=== PATIENT | female | born 1985 | race Caucasian/White ===

== ENCOUNTER 2018-06-20 17:44 | Inpatient (IN) | payer OTHER ==
[2018-06-20] MEDS ORDERED: Sodium Chloride 0.9% 10 ML Syringe FLUSH PRN (17:52)
[2018-06-20] MEDS ORDERED: Tranexamic Acid 1,000 MG in Sodium Chloride 0.9% 100 ML IV PRN (17:52)
[2018-06-20] MEDS ORDERED: Terbutaline 1 MG/ML SDV SUBCUT PRN (17:52)
[2018-06-20] MEDS ORDERED: Carboprost Tromethamine 250 MCG/1 ML Amp IM PRN (17:52)
[2018-06-20] MEDS ORDERED: Sodium Chloride 0.9% 2.5 ML Syringe FLUSH PRN (17:52)
[2018-06-20] MEDS ORDERED: Sodium Chloride 0.9% 10 ML SDV IV PRN (17:52)
[2018-06-20] MEDS ORDERED: Water For Irrigation,Sterile 1,000 ML Container IRR PRN (17:52)
[2018-06-20] MEDS ORDERED: Misoprostol 200 MCG Tab PO PRN (17:52)
[2018-06-20] MEDS ORDERED: Methylergonovine 0.2 MG/1 ML Amp IM PRN (17:52)
[2018-06-20] MEDS ORDERED: Lidocaine 1% 50 ML MDV INJECT PRN (17:52)
[2018-06-20] MEDS ORDERED: Ondansetron 4 MG/2 ML SDV IV PRN (17:52)
[2018-06-20] MEDS ORDERED: Oxytocin/0.9 % Sodium Chloride 30 UNIT/500 ML BAG IV SCH ×2 (18:00)
[2018-06-20] MEDS: Misoprostol 25 MCG (1/4 of 100 MCG) Tab VAG PRN ×2 (18:37→22:58)
[2018-06-21] MEDS: Butorphanol 1 MG/ML SDV IVPUSH PRN ×3 (03:13→06:15)
[2018-06-21] MEDS: Lactated Ringers 1,000 ML IV SCH ×2 (06:15→07:33)
--- NOTE | 2018-06-21 06:45 | PCM.PREANE ---
Preanesthetic Assessment - Anesthesia/Transfusion/Family Hx Anesthesia History: Prior Anesthesia Without Reaction Family History of Anesthesia Reaction: No Transfusion History: No Prior Transfusion(s) - Review of Systems General: No Symptoms Pulmonary: No Symptoms Cardiovascular: No Symptoms Gastrointestinal: No Symptoms Neurological: No Symptoms Other: Reports: None - Physical Assessment Height: 5 ft 8 in Weight: 142.609 kg ASA Class: 2 Mental Status: Alert & Oriented x3 Airway Class: Mallampati = 2 Dentition: Reports: Normal Dentition Thyro-Mental Finger Breadths: 3 Mouth Opening Finger Breadths: 3 ROM/Head Extension: Full Lungs: Clear to Auscultation, Normal Respiratory Effort Cardiovascular: Regular Rate, Regular Rhythm - Lab Values: Laboratory Last Values WBC 8.82 K/uL (4.0-11.0) 06/20/18 18: RBC 4.03 M/uL (4.30-5.90) L 06/20/18 18:29 Hgb 11.8 g/dL (12.0-16.0) L 06/20/18 18: Hct 35.6 % (36.0-46.0) L 06/20/18 18:29 MCV 88.3 fL (80.0-98.0) 06/20/18 18: MCH 29.3 pg (27.0-32.0) 06/20/18 18: MCHC 33.1 g/dL (31.0-37.0) 06/20/18 18:29 RDW Std Deviation 43.3 fl (28.0-62.0) 06/20/18 18: RDW Coeff of Fer 13 % (11.0-15.0) 06/20/18 18: Plt Count 179 K/uL (150-400) 06/20/18 18: MPV 12.10 fL (7.40-12.00) H 06/20/18 18:29 Nucleated RBC % 0.0 /100WBC 06/20/18 18: Nucleated RBCs # 0 K/uL 06/20/18 18:29 POC Glucose 80 mg/dL (60-110) 06/21/18 01:56 Blood Type A POSITIVE 06/20/18 18: Antibody Screen NEGATIVE 06/20/18 18:29 - Allergies Allergies/Adverse Reactions: Allergies Allergy/AdvReac Type Severity Reaction Status Date / Time levofloxacin [From Levaquin] Allergy Hives Verified 06/20/18 18:01 Penicillins Allergy Hives Verified 06/20/18 18:01 - Acknowledgements Anesthesia Type Planned: Epidural Pt an Appropriate Candidate for the Planned Anesthesia: Yes Alternatives and Risks of Anesthesia Discussed w Pt/Guardian: Yes Pt/Guardian Understands and Agrees with Anesthesia Plan: Yes PreAnesthesia Questionnaire HEENT History: Reports: None Cardiovascular History: Reports: None Respiratory History: Reports: None Gastrointestinal History: Reports: GERD Genitourinary History: Reports: None 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): Musculoskeletal History: Reports: None Neurological History: Reports: None Psychiatric History: Reports: None Endocrine/Metabolic History: Reports: Diabetes, Gestational, Obesity/BMI 30+ Hematologic History: Reports: Anemia Immunologic History: Reports: None Oncologic (Cancer) History: Reports: None Dermatologic History: Reports: None - Infectious Disease History Infectious Disease History: Reports: Chicken Pox - Past Surgical History GI Surgical History: Reports: Cholecystectomy - HOME MEDS Home Medications: Home Meds Folic Acid 1 tab PO DAILY 06/20/18 [History] PNV95/Ferrous Fumarate/FA [ Tablet] 1 tab PO DAILY 06/20/18 [History] - CURRENT (IN HOUSE) MEDS Current Meds: Current Medications Butorphanol Tartrate (Stadol) 1 mg IVPUSH Q1H PRN PRN Reason: Pain Last Admin: 06/21/18 04:59 Dose: 1 mg Carboprost Tromethamine (Hemabate Ds) 250 mcg IM ASDIRECTED PRN PRN Reason: Post Hemorrhage Lactated Ringer's (Ringers, Lactated) 1,000 mls @ 150 mls/hr IV ASDIRECTED ALINA Oxytocin/Sodium Chloride (Oxytocin 30 Unit/500 Ml-Ns) 30 unit in 500 mls @ 999 mls/hr IV TITRATE ALINA Oxytocin/Sodium Chloride (Oxytocin 30 Unit/500 Ml-Ns) 30 unit in 500 mls @ 2 mls/hr IV TITRATE ALINA; Protocol Tranexamic Acid 1,000 mg/ (Sodium Chloride) 110 mls @ 660 mls/hr IV ONETIME PRN PRN Reason: Bleeding Lidocaine HCl (Xylocaine 1%) 50 ml INJECT ONETIME PRN PRN Reason: Laceration repair Methylergonovine Maleate (Methergine) 0.2 mg IM ASDIRECTED PRN PRN Reason: Post Hemorrhage Misoprostol (Cytotec) 200 mcg PO ONETIME PRN PRN Reason: Post Hemorrhage Misoprostol (Cytotec) 25 mcg VAG Q4H PRN PRN Reason: Cervical Ripening Last Admin: 06/20/18 22:58 Dose: 25 mcg Ondansetron HCl (Zofran) 4 mg IV Q6H PRN PRN Reason: Nausea/Vomiting Last Admin: 06/21/18 03:22 Dose: 4 mg Sodium Chloride (Saline Flush) 10 ml FLUSH ASDIRECTED PRN PRN Reason: Keep Vein Open Sodium Chloride (Saline Flush) 2.5 ml FLUSH ASDIRECTED PRN PRN Reason: Keep Vein Open Sodium Chloride (Normal Saline) 10 ml IV ASDIRECTED PRN PRN Reason: IV Use Sterile Water (Sterile Water For Irrigation) 1,000 ml IRR ASDIRECTED PRN PRN Reason: delivery Terbutaline Sulfate (Brethine) 0.25 mg SUBCUT ASDIRECTED PRN PRN Reason: Tacysystole
[2018-06-21] MEDS ORDERED: Lidocaine HCl/EPINEPHrine 5 ML IJ ONE (06:46)
[2018-06-21] MEDS ORDERED: Acetaminophen 500 MG Tab PO ONE (17:11)
[2018-06-21] MEDS ORDERED: Bupivacaine 0.5% 10 ML SDV ONE (20:29)
[2018-06-21] MEDS ORDERED: Sodium Chloride 0.9% 20 ML ONE ×2 (20:44→20:52)
[2018-06-21] MEDS ORDERED: ceFAZolin 1 GM Vial ONE ×2 (20:44→20:52)
[2018-06-21] MEDS ORDERED: Oxytocin 10 Units/1 ML SDV ONE (20:46)
[2018-06-21] MEDS ORDERED: Ondansetron 4 MG/2 ML SDV ONE (21:01)
[2018-06-21] MEDS ORDERED: Morphine PF 10 MG/10 ML SDV ONE (21:08)
[2018-06-21] MEDS ORDERED: Octyl 2-Cyanoacrylate 1 Tube ONE (21:21)
[2018-06-21] MEDS ORDERED: Naloxone 0.4 MG/ML Syringe IVPUSH PRN ×2 (21:23→22:04)
[2018-06-21] MEDS ORDERED: diphenhydrAMINE 50 MG/ML SDV IVPUSH PRN ×3 (21:23→22:04)
[2018-06-21] MEDS ORDERED: Nalbuphine 10 MG/1 ML Vial IVPUSH PRN ×2 (21:23→22:04)
[2018-06-21] MEDS ORDERED: Ondansetron 4 MG/2 ML SDV IVPUSH PRN (21:42)
[2018-06-21] MEDS ORDERED: Bisacodyl 10 MG Supp RECTAL PRN (21:42)
[2018-06-21] MEDS ORDERED: Lanolin 100% Cream 7 GM Tube TOP PRN (21:42)
[2018-06-21] MEDS ORDERED: Lactated Ringers 1,000 ML IV SCH (21:45)
--- NOTE | 2018-06-21 21:50 | PCM.OPNOTE ---
- General Post-Op/Procedure Note Date of Surgery/Procedure: 06/21/18 Operative Procedure(s): Primary LTCS Findings: Viable female APGARs 8, 9 weight pending.Delivery intact placenta with 3V cord. Pre Op Diagnosis: 39 week IUP. IOL For gestational diabetes. Arrest of descent Post-Op Diagnosis: Same Anesthesia Technique: Epidural Primary Surgeon: Shruthi Sadler Coal Loader: Justice Garcia Fluid Replacement, Intraop: 1,000 EBL in mLs: 600 Complications: none known Condition: Good Free Text/Narrative:: Dictation
[2018-06-21] MEDS: Ketorolac 30 MG/ML SDV IVPUSH SCH (22:00)
--- NOTE | 2018-06-21 22:07 | PCM.POSTAN ---
POST ANESTHESIA ASSESSMENT - MENTAL STATUS Mental Status: Alert, Oriented - RESPIRATORY Respiratory Status: Respiratory Rate WNL, Airway Patent, O2 Saturation Stable - CARDIOVASCULAR CV Status: Pulse Rate WNL, Blood Pressure Stable - GASTROINTESTINAL GI Status: No Symptoms - PAIN Pain Score: 0 - POST OP HYDRATION Hydration Status: Adequate & Stable
[2018-06-22] MEDS: Ketorolac 30 MG/ML SDV IVPUSH SCH ×4 (03:22→21:43)
--- NOTE | 2018-06-22 03:45 | OR ---
SURGEON: Shruthi Sadler M.D. DATE OF PROCEDURE: 06/21/2018 PREOPERATIVE DIAGNOSES: 1. 39-1/7 week intrauterine . 2. Induction of labor for gestational diabetes. 3. Arrest of descent. POSTOPERATIVE DIAGNOSES: 1. 39-1/7 week intrauterine . 2. Induction of labor for gestational diabetes. 3. Arrest of descent. PROCEDURE: Primary low-transverse section PRIMARY SURGEON: Shruthi Sadler M.D. SOLUTION COORDINATOR: Justice Garcia MD ANESTHESIA: Epidural. ESTIMATED BLOOD LOSS: 600 mL. FLUIDS: 1000 mL of crystalloid in OR. COMPLICATIONS: None known. FINDINGS: Viable female, Apgars 8 at 1 minute and 9 at 5 minutes. Weight is pending. At delivery, intact placenta, three-vessel cord, normal-appearing pelvis. DISPOSITION: Infant nursery, mom in LDRP and stable. PROCEDURE DETAILS: Jovana julien is a 33-year-old, G1, P0, at 39-1/7 weeks gestational age, who presented on the evening of 06/20/2018 for scheduled induction of labor. She was initially unstable, so underwent Cytotec ripening, responded nicely to this. Had spontaneous rupture of membranes shortly after 2 a.m., clear fluid. She is group B beta strep negative. The patient continued to progress through the cash on delivery clerk hours and transitioned to Pitocin induction. Also responded nicely to this. Shortly before 9 a.m., was found to be 3-4 cm dilated, was 6 cm shortly after noon, and shortly before 5 p.m. was found to be complete 100% effaced, +1 station. She had undergone regional anesthesia in form of epidural and was comfortable. She began pushing efforts and pushed readily and gave continuous pushing efforts for about 3 hours, really the station never made it past +1. The fetus was felt to be slightly transverse, and therefore was rotated to OA, however, still with pushing efforts made no descent past +1 station. At this juncture, we discussed our findings with the patient and options were discussed where she could continue to push if heart tones remain reassuring or proceed with delivery given that there has been no change in station with number of hours of pushing. She is opting to proceed with delivery. Risks of procedure have been discussed. Risks of the procedure include infection; bleeding; possible trauma to the surrounding bowel, bladder, ureters; in case of excessive blood loss, need for blood product transfusion, rare lifesaving circumstances, need for hysterectomy, risk for thromboembolic event, and risk of anesthesia. Proper consent obtained. The patient was taken to the operating room where she underwent a bolus of her epidural, was placed in the dorsal supine position with leftward tilt, SCDs to lower extremities, Griffin to gravity and was prepped and draped in the usual sterile fashion. After being prepped and draped in usual sterile fashion, a time-out was performed. Anesthesia was tested and found to be adequate. Pfannenstiel incision was now created and carried down to the level of the rectus fascia which was incised in midline, lateralized on either side sharply and bluntly. The superior aspect of fascia was tented upward, dissected sharply and bluntly from underlying muscle. Similar dissection was performed with the inferior aspect of the fascia. Rectus muscles were in the midline. Peritoneum was entered. Rectus muscles and peritoneum were lateralized bluntly. Uterine position and position were palpated. A self-retaining retractor was gently placed. Bladder flap was created sharply and bluntly. Bladder was mobilized away from lower uterine segment. Low transverse hysterotomy was now performed. Uterine cavity was entered with blunt end of scalpel. Hysterotomy was lateralized bluntly. The infant's head was delivered from the pelvis. Fundal pressure was applied. The 's head was delivered followed by shoulders and remainder of body without difficulty. The infant's oropharynx and nares bulb suctioned. Infant was crying. Cord was clamped x2 and cut. was handed off to attending nursing staff. Cord arterial, cord venous, cord blood sampling was obtained. The placenta was now delivered. The uterine cavity was cleared of all clot and debris. The hysterotomy was repaired using 0 Vicryl in continuous running locked fashion followed by re-imbricating layer. Area of oozing in the midline was repaired with a [id number] suture. Posterior aspect of the uterus was inspected. Normal appearing pelvis. Posterior aspect was well irrigated and suction dried. Uterus returned to abdominal cavity. Colonic gutters were cleared of all clot and debris, well irrigated and suction dried. Hysterotomy once again inspected and found to be hemostatic except for some small areas of serosal oozing which were cauterized. Self-retaining retractor now gently removed. Bladder blade was placed. Hysterotomy was again inspected and found to be hemostatic. Rectus muscle and peritoneum were now reapproximated using 0 Vicryl in inverted mattress suture technique. Anterior aspect of the muscle, posterior aspect of the fascia closely inspected and any areas of oozing were cauterized. The rectus fascia was now reapproximated using 0 Vicryl beginning laterally in continuous running fashion meeting in the midline. Subcutaneous tissue was well irrigated, suction dried. . Any areas of oozing were cauterized. Deep subcutaneous tissue was reapproximated using 3-0 plain. The skin edges were reapproximated using 3-0 Vicryl on a Peña needle in subcuticular fashion followed by Dermabond. Uterus remained firm. Vigorous fundal uterine massage was then applied. The patient is receiving 20 units Pitocin in her IV. Sponge, instrument and needle count was correct x3. The patient has tolerated the procedure well overall. She will go to PACU in stable condition. Infant was with the attending nursing staff. LUCIE DEVI /[id number] JOHN
--- NOTE | 2018-06-22 08:09 | PCM.PNPP ---
<Dana San - Last Filed: 06/22/18 08:09> - General Info Date of Service: 06/22/18 Functional Status: Reports: Pain Controlled, Tolerating Diet, Ambulating, Urinating (catheter in place) - Review of Systems General: Denies: Fever, Weakness, Fatigue Pulmonary: Denies: Shortness of Breath, Pleuritic Chest Pain, Cough Cardiovascular: Denies: Chest Pain, Palpitations, Dyspnea on Exertion Gastrointestinal: Denies: Abdominal Pain Genitourinary: Denies: Dysuria - General Info Date of Service: 06/22/18 - Patient Data Vital Signs - Most Recent: Last Vital Signs Temp 36.5 C 06/22/18 07:25 Pulse 73 06/22/18 07:25 Resp 15 06/22/18 07:25 BP 131/65 06/22/18 07:25 Pulse Ox 96 06/22/18 07:25 Weight - Most Recent: 142.609 kg I&O - Last 24 Hours: Intake & Output 06/21/18 06/22/18 06/22/18 22:59 06:59 14:59 Intake Total 2900 Output Total 100 750 Balance 2800 -750 Lab Results - Last 24 Hours: Laboratory Results - last 24 hr 06/21/18 06/21/18 06/21/18 Range/Units 13:24 19:31 20:59 Hgb (12.0-16.0) g/dL Hct (36.0-46.0) % Cord ABG pH 7.239 (7.18-7.38) Cord ABG Base Excess -6 (-10--2) Cord VBG pH 7.285 (7.25-7.45) Cord VBG Base Excess -6 (-10--2) POC Glucose 84 114 H (60-110) mg/dL Fasting Glucose (74-106) mg/dL 06/22/18 06/22/18 06/22/18 Range/Units 01:19 05:10 05:10 Hgb 10.1 L (12.0-16.0) g/dL Hct 30.4 L (36.0-46.0) % Cord ABG pH (7.18-7.38) Cord ABG Base Excess (-10--2) Cord VBG pH (7.25-7.45) Cord VBG Base Excess (-10--2) POC Glucose 104 (60-110) mg/dL Fasting Glucose 97 (74-106) mg/dL Med Orders - Current: Current Medications Bisacodyl (Dulcolax) 10 mg RECTAL ONETIME PRN PRN Reason: Constipation Carboprost Tromethamine (Hemabate Ds) 250 mcg IM ASDIRECTED PRN PRN Reason: Post Hemorrhage Diphenhydramine HCl (Benadryl) 25 mg IVPUSH Q6H PRN PRN Reason: Itching or Nausea Diphenhydramine HCl (Benadryl) 25 mg IVPUSH Q4H PRN PRN Reason: Itching Stop: 06/22/18 22:05 Docusate Sodium (Colace) 100 mg PO BID [facility] Emollient Ointment (Lansinoh Hpa) 0 gm TOP ASDIRECTED PRN PRN Reason: Sore Nipples Lactated Ringer's (Ringers, Lactated) 1,000 mls @ 150 mls/hr IV ASDIRECTED [facility] Last Admin: 06/21/18 07:33 Dose: 150 mls/hr Oxytocin/Sodium Chloride (Oxytocin 30 Unit/500 Ml-Ns) 30 unit in 500 mls @ 999 mls/hr IV TITRATE ALINA Oxytocin/Sodium Chloride (Oxytocin 30 Unit/500 Ml-Ns) 30 unit in 500 mls @ 2 mls/hr IV TITRATE [facility]; Protocol Last Titration: 06/21/18 19:54 Dose: 28 munits/min, 28 mls/hr Tranexamic Acid 1,000 mg/ (Sodium Chloride) 110 mls @ 660 mls/hr IV ONETIME PRN PRN Reason: Bleeding Lactated Ringer's (Ringers, Lactated) 1,000 mls @ 125 mls/hr IV ASDIRECTED [facility] Last Admin: 06/21/18 22:56 Dose: 125 mls/hr Ibuprofen (Motrin) 800 mg PO Q8H PRN PRN Reason: mild pain or fever Ketorolac Tromethamine (Toradol) 30 mg IVPUSH Q6H [facility] Stop: 06/22/18 21:46 Last Admin: 06/22/18 03:22 Dose: 30 mg Methylergonovine Maleate (Methergine) 0.2 mg IM ASDIRECTED PRN PRN Reason: Post Hemorrhage Nalbuphine HCl (Nubain) 5 mg IVPUSH Q3H PRN PRN Reason: Pruritis Stop: 06/22/18 22:05 Naloxone HCl (Narcan) 0.1 mg IVPUSH ONETIME PRN PRN Reason: Respiratory Depression Stop: 06/22/18 22:05 Ondansetron HCl (Zofran) 4 mg IV Q6H PRN PRN Reason: Nausea/Vomiting Last Admin: 06/21/18 03:22 Dose: 4 mg Ondansetron HCl (Zofran) 4 mg IVPUSH Q4H PRN PRN Reason: Nausea/Vomiting Oxycodone/Acetaminophen (Percocet 325-5 Mg) 1 tab PO Q4H PRN PRN Reason: Pain (moderate 4-6) Oxycodone/Acetaminophen (Percocet 325-5 Mg) 2 tab PO Q4H PRN PRN Reason: Pain (moderate 4-6) Sodium Chloride (Saline Flush) 10 ml FLUSH ASDIRECTED PRN PRN Reason: Keep Vein Open Sodium Chloride (Saline Flush) 2.5 ml FLUSH ASDIRECTED PRN PRN Reason: Keep Vein Open Sodium Chloride (Normal Saline) 10 ml IV ASDIRECTED PRN PRN Reason: IV Use Sterile Water (Sterile Water For Irrigation) 1,000 ml IRR ASDIRECTED PRN PRN Reason: delivery Discontinued Medications Acetaminophen (Tylenol Extra Strength) 1,000 mg PO ONETIME ONE Stop: 06/21/18 17:12 Last Admin: 06/21/18 17:23 Dose: 1,000 mg Bupivacaine HCl (Sensorcaine-Mpf 0.5%) Confirm Administered Dose 20 ml .ROUTE .STK-MED ONE Stop: 06/21/18 20:30 Last Admin: 06/21/18 23:17 Dose: Not Given Butorphanol Tartrate (Stadol) 1 mg IVPUSH Q1H PRN PRN Reason: Pain Last Admin: 06/21/18 06:15 Dose: 1 mg Cefazolin Sodium (Ancef) Confirm Administered Dose 2 gm .ROUTE .STK-MED ONE Stop: 06/21/18 20:45 Cefazolin Sodium (Ancef) Confirm Administered Dose 1 gm .ROUTE .STK-MED ONE Stop: 06/21/18 20:53 Diphenhydramine HCl (Benadryl) 25 mg IVPUSH Q4H PRN PRN Reason: Itching Stop: 06/22/18 21:25 Fentanyl/Bupivacaine HCl (Ndtwmhts-Kklil-Vb 2 Mcg/Ml-0.125%) Confirm Administered Dose 100 mls @ as directed .ROUTE .STK-MED ONE Stop: 06/21/18 06:47 Last Admin: 06/21/18 23:16 Dose: Not Given Fentanyl/Bupivacaine HCl (Pygkzbcv-Cbcpz-Xl 2 Mcg/Ml-0.125%) Confirm Administered Dose 100 mls @ as directed .ROUTE .STK-MED ONE Stop: 06/21/18 12:05 Last Admin: 06/21/18 23:17 Dose: Not Given Fentanyl/Bupivacaine HCl (Yvtrclva-Cgavg-Kb 2 Mcg/Ml-0.125%) Confirm Administered Dose 100 mls @ as directed .ROUTE .STK-MED ONE Stop: 06/21/18 18:12 Last Admin: 06/21/18 23:17 Dose: Not Given Cefazolin Sodium/Dextrose 3 gm (/ Premix) 75 mls @ 100 mls/hr IV ONETIME ONE Stop: 06/21/18 20:54 Last Admin: 06/21/18 23:17 Dose: Not Given Sodium Chloride (Normal Saline) Confirm Administered Dose 20 mls @ as directed .ROUTE .STK-MED ONE Stop: 06/21/18 20:45 Sodium Chloride (Normal Saline) Confirm Administered Dose 20 mls @ as directed .ROUTE .STK-MED ONE Stop: 06/21/18 20:53 Lidocaine HCl (Xylocaine 1%) 50 ml INJECT ONETIME PRN PRN Reason: Laceration repair Lidocaine/Epinephrine (Lidocaine 1.5%-Epi 1:200,000) Confirm Administered Dose 5 ml IJ .STK-MED ONE Stop: 06/21/18 06:47 Last Admin: 06/21/18 23:17 Dose: Not Given Misoprostol (Cytotec) 200 mcg PO ONETIME PRN PRN Reason: Post Hemorrhage Misoprostol (Cytotec) 25 mcg VAG Q4H PRN PRN Reason: Cervical Ripening Last Admin: 06/20/18 22:58 Dose: 25 mcg Morphine Sulfate (Duramorph Pf) Confirm Administered Dose 10 mg .ROUTE .STK-MED ONE Stop: 06/21/18 21:09 Nalbuphine HCl (Nubain) 5 mg IVPUSH Q3H PRN PRN Reason: Pruritis Stop: 06/22/18 21:24 Naloxone HCl (Narcan) 0.1 mg IVPUSH ONETIME PRN PRN Reason: Respiratory Depression Stop: 06/22/18 21:25 Octyl Cyanoacrylate (Dermabond Advance) Confirm Administered Dose 1 applic .ROUTE .STK-MED ONE Stop: 06/21/18 21:22 Last Admin: 06/21/18 23:17 Dose: Not Given Ondansetron HCl (Zofran) Confirm Administered Dose 4 mg .ROUTE .STK-MED ONE Stop: 06/21/18 21:02 Oxytocin (Pitocin) Confirm Administered Dose 30 unit .ROUTE .STK-MED ONE Stop: 06/21/18 20:47 Terbutaline Sulfate (Brethine) 0.25 mg SUBCUT ASDIRECTED PRN PRN Reason: Tacysystole - Infant Interaction Disposition, : [place] in Room with Family Interaction: Holding Infant Infant Feeding: Breastfed ; Nursed Well - Recovery Exam Fundal Tone: Firm Fundal Level: 1 Fingerbreadths Below Umbilicus Fundal Placement: Midline Lochia Amount: Small Lochia Color: Rubra/Red Perineum Description: Intact, Minimal Bruising/Swelling Episiotomy/Laceration: Approximated Bladder Status: Indwelling Catheter in Place Urinary Elimination: Indwelling Catheter - Exam General: Alert, Oriented Neck: Supple Lungs: Clear to Auscultation, Normal Respiratory Effort Cardiovascular: Regular Rate, Regular Rhythm, Murmurs GI/Abdominal Exam: Normal Bowel Sounds, Soft, No Distention, No Mass Extremities: Normal Inspection, Non-Tender, Normal Capillary Refill, Pedal Edema (trace) Skin: Warm, Dry, Intact - Problem List & Annotations (1) delivery delivered SNOMED Code(s): 825080397 Code(s): O82 - ENCOUNTER FOR DELIVERY WITHOUT INDICATION Status: Acute Current Visit: Yes - Problem List Review Problem List Initiated/Reviewed/Updated: Yes - Assessment Assessment:: POD#1 s/p PLTCS for arrest to descent. Minimal pain and lochia. Steri-strips placed along right side of incision. Breast feeding well. Catheter out this morning. - Plan Plan:: Continue routine post-op cares. <Shruthi Sadler Raymundo - Last Filed: 06/22/18 08:28> - Patient Data Vital Signs - Most Recent: Last Vital Signs Temp 36.5 C 06/22/18 07:25 Pulse 73 06/22/18 07:25 Resp 15 06/22/18 07:25 BP 131/65 06/22/18 07:25 Pulse Ox 96 06/22/18 07:25 I&O - Last 24 Hours: Intake & Output 06/21/18 06/22/18 06/22/18 22:59 06:59 14:59 Intake Total 2900 Output Total 100 750 Balance 2800 -750 Lab Results - Last 24 Hours: Laboratory Results - last 24 hr 06/21/18 06/21/18 06/21/18 Range/Units 13:24 19:31 20:59 Hgb (12.0-16.0) g/dL Hct (36.0-46.0) % Cord ABG pH 7.239 (7.18-7.38) Cord ABG Base Excess -6 (-10--2) Cord VBG pH 7.285 (7.25-7.45) Cord VBG Base Excess -6 (-10--2) POC Glucose 84 114 H (60-110) mg/dL Fasting Glucose (74-106) mg/dL 06/22/18 06/22/18 06/22/18 Range/Units 01:19 05:10 05:10 Hgb 10.1 L (12.0-16.0) g/dL Hct 30.4 L (36.0-46.0) % Cord ABG pH (7.18-7.38) Cord ABG Base Excess (-10--2) Cord VBG pH (7.25-7.45) Cord VBG Base Excess (-10--2) POC Glucose 104 (60-110) mg/dL Fasting Glucose 97 (74-106) mg/dL Med Orders - Current: Current Medications Bisacodyl (Dulcolax) 10 mg RECTAL ONETIME PRN PRN Reason: Constipation Carboprost Tromethamine (Hemabate Ds) 250 mcg IM ASDIRECTED PRN PRN Reason: Post Hemorrhage Diphenhydramine HCl (Benadryl) 25 mg IVPUSH Q6H PRN PRN Reason: Itching or Nausea Diphenhydramine HCl (Benadryl) 25 mg IVPUSH Q4H PRN PRN Reason: Itching Stop: 06/22/18 22:05 Docusate Sodium (Colace) 100 mg PO BID [facility] Emollient Ointment (Lansinoh Hpa) 0 gm TOP ASDIRECTED PRN PRN Reason: Sore Nipples Lactated Ringer's (Ringers, Lactated) 1,000 mls @ 150 mls/hr IV ASDIRECTED [facility] Last Admin: 06/21/18 07:33 Dose: 150 mls/hr Oxytocin/Sodium Chloride (Oxytocin 30 Unit/500 Ml-Ns) 30 unit in 500 mls @ 999 mls/hr IV TITRATE [facility] Oxytocin/Sodium Chloride (Oxytocin 30 Unit/500 Ml-Ns) 30 unit in 500 mls @ 2 mls/hr IV TITRATE [facility]; Protocol Last Titration: 06/21/18 19:54 Dose: 28 munits/min, 28 mls/hr Tranexamic Acid 1,000 mg/ (Sodium Chloride) 110 mls @ 660 mls/hr IV ONETIME PRN PRN Reason: Bleeding Lactated Ringer's (Ringers, Lactated) 1,000 mls @ 125 mls/hr IV ASDIRECTED [facility] Last Admin: 06/21/18 22:56 Dose: 125 mls/hr Ibuprofen (Motrin) 800 mg PO Q8H PRN PRN Reason: mild pain or fever Ketorolac Tromethamine (Toradol) 30 mg IVPUSH Q6H [facility] Stop: 06/22/18 21:46 Last Admin: 06/22/18 03:22 Dose: 30 mg Methylergonovine Maleate (Methergine) 0.2 mg IM ASDIRECTED PRN PRN Reason: Post Hemorrhage Nalbuphine HCl (Nubain) 5 mg IVPUSH Q3H PRN PRN Reason: Pruritis Stop: 06/22/18 22:05 Naloxone HCl (Narcan) 0.1 mg IVPUSH ONETIME PRN PRN Reason: Respiratory Depression Stop: 06/22/18 22:05 Ondansetron HCl (Zofran) 4 mg IV Q6H PRN PRN Reason: Nausea/Vomiting Last Admin: 06/21/18 03:22 Dose: 4 mg Ondansetron HCl (Zofran) 4 mg IVPUSH Q4H PRN PRN Reason: Nausea/Vomiting Oxycodone/Acetaminophen (Percocet 325-5 Mg) 1 tab PO Q4H PRN PRN Reason: Pain (moderate 4-6) Oxycodone/Acetaminophen (Percocet 325-5 Mg) 2 tab PO Q4H PRN PRN Reason: Pain (moderate 4-6) Sodium Chloride (Saline Flush) 10 ml FLUSH ASDIRECTED PRN PRN Reason: Keep Vein Open Sodium Chloride (Saline Flush) 2.5 ml FLUSH ASDIRECTED PRN PRN Reason: Keep Vein Open Sodium Chloride (Normal Saline) 10 ml IV ASDIRECTED PRN PRN Reason: IV Use Sterile Water (Sterile Water For Irrigation) 1,000 ml IRR ASDIRECTED PRN PRN Reason: delivery Discontinued Medications Acetaminophen (Tylenol Extra Strength) 1,000 mg PO ONETIME ONE Stop: 06/21/18 17:12 Last Admin: 06/21/18 17:23 Dose: 1,000 mg Bupivacaine HCl (Sensorcaine-Mpf 0.5%) Confirm Administered Dose 20 ml .ROUTE .STK-MED ONE Stop: 06/21/18 20:30 Last Admin: 06/21/18 23:17 Dose: Not Given Butorphanol Tartrate (Stadol) 1 mg IVPUSH Q1H PRN PRN Reason: Pain Last Admin: 06/21/18 06:15 Dose: 1 mg Cefazolin Sodium (Ancef) Confirm Administered Dose 2 gm .ROUTE .STK-MED ONE Stop: 06/21/18 20:45 Cefazolin Sodium (Ancef) Confirm Administered Dose 1 gm .ROUTE .STK-MED ONE Stop: 06/21/18 20:53 Diphenhydramine HCl (Benadryl) 25 mg IVPUSH Q4H PRN PRN Reason: Itching Stop: 06/22/18 21:25 Fentanyl/Bupivacaine HCl (Zqmdhgnf-Vltpa-Kn 2 Mcg/Ml-0.125%) Confirm Administered Dose 100 mls @ as directed .ROUTE .STK-MED ONE Stop: 06/21/18 06:47 Last Admin: 06/21/18 23:16 Dose: Not Given Fentanyl/Bupivacaine HCl (Omalzhka-Aflmq-Ni 2 Mcg/Ml-0.125%) Confirm Administered Dose 100 mls @ as directed .ROUTE .STK-MED ONE Stop: 06/21/18 12:05 Last Admin: 06/21/18 23:17 Dose: Not Given Fentanyl/Bupivacaine HCl (Cznpqjfn-Nqtxx-Zm 2 Mcg/Ml-0.125%) Confirm Administered Dose 100 mls @ as directed .ROUTE .STK-MED ONE Stop: 06/21/18 18:12 Last Admin: 06/21/18 23:17 Dose: Not Given Cefazolin Sodium/Dextrose 3 gm (/ Premix) 75 mls @ 100 mls/hr IV ONETIME ONE Stop: 06/21/18 20:54 Last Admin: 06/21/18 23:17 Dose: Not Given Sodium Chloride (Normal Saline) Confirm Administered Dose 20 mls @ as directed .ROUTE .STK-MED ONE Stop: 06/21/18 20:45 Sodium Chloride (Normal Saline) Confirm Administered Dose 20 mls @ as directed .ROUTE .STK-MED ONE Stop: 06/21/18 20:53 Lidocaine HCl (Xylocaine 1%) 50 ml INJECT ONETIME PRN PRN Reason: Laceration repair Lidocaine/Epinephrine (Lidocaine 1.5%-Epi 1:200,000) Confirm Administered Dose 5 ml IJ .STK-MED ONE Stop: 06/21/18 06:47 Last Admin: 06/21/18 23:17 Dose: Not Given Misoprostol (Cytotec) 200 mcg PO ONETIME PRN PRN Reason: Post Hemorrhage Misoprostol (Cytotec) 25 mcg VAG Q4H PRN PRN Reason: Cervical Ripening Last Admin: 06/20/18 22:58 Dose: 25 mcg Morphine Sulfate (Duramorph Pf) Confirm Administered Dose 10 mg .ROUTE .STK-MED ONE Stop: 06/21/18 21:09 Nalbuphine HCl (Nubain) 5 mg IVPUSH Q3H PRN PRN Reason: Pruritis Stop: 06/22/18 21:24 Naloxone HCl (Narcan) 0.1 mg IVPUSH ONETIME PRN PRN Reason: Respiratory Depression Stop: 06/22/18 21:25 Octyl Cyanoacrylate (Dermabond Advance) Confirm Administered Dose 1 applic .ROUTE .STK-MED ONE Stop: 06/21/18 21:22 Last Admin: 06/21/18 23:17 Dose: Not Given Ondansetron HCl (Zofran) Confirm Administered Dose 4 mg .ROUTE .STK-MED ONE Stop: 06/21/18 21:02 Oxytocin (Pitocin) Confirm Administered Dose 30 unit .ROUTE .STK-MED ONE Stop: 06/21/18 20:47 Terbutaline Sulfate (Brethine) 0.25 mg SUBCUT ASDIRECTED PRN PRN Reason: Tacysystole - Problem List & Annotations (1) Arrest of descent, delivered, current hospitalization SNOMED Code(s): 74895380 Code(s): O62.1 - SECONDARY UTERINE INERTIA Status: Acute Current Visit: Yes (2) Gestational diabetes SNOMED Code(s): 55426047 Code(s): O24.419 - GESTATIONAL DIABETES MELLITUS IN , UNSP CONTROL Status: Acute Current Visit: Yes Qualifiers: Gestational diabetes mellitus control: diet-controlled Trimester: third trimester Qualified Code(s): O24.410 - Gestational diabetes mellitus in , diet controlled - Problem List Review Problem List Initiated/Reviewed/Updated: Yes - My Orders Last 24 Hours: My Active Orders 06/21/18 21:42 Patient Status [ADT] Routine Ambulate [RC] PER UNIT ROUTINE Antiembolic Devices [RC] PER UNIT ROUTINE Communication Order [RC] PER UNIT ROUTINE Communication Order [RC] PER UNIT ROUTINE Communication Order [RC] Per Unit Routine Notify Provider Intake and Out [RC] ASDIRECTED Notify Provider Vital Signs [RC] ASDIRECTED RT Incentive Spirometry [RC] Q2HWA Acetaminophen/oxyCODONE [Percocet 325-5 MG] 1 tab PO Q4H PRN Acetaminophen/oxyCODONE [Percocet 325-5 MG] 2 tab PO Q4H PRN Bisacodyl [Dulcolax] 10 mg RECTAL ONETIME PRN Lanolin [Lansinoh HPA] See Dose Instructions TOP ASDIRECTED PRN Ondansetron [Zofran] 4 mg IVPUSH Q4H PRN diphenhydrAMINE [Benadryl] 25 mg IVPUSH Q6H PRN Abdominal Binder [OM.PC] Routine Assess Lochia [WOMSER] Per Unit Routine Assess Uterine Involution [WOMSER] Per Unit Routine Breast Pump [WOMSER] Per Unit Routine Heat Therapy [OM.PC] Routine Ice Therapy [OM.PC] Routine Peripheral IV Discontinue [OM.PC] Routine Sequential Compression Device [OM.PC] Per Unit Routine 06/21/18 21:45 Ketorolac [Toradol] 30 mg IVPUSH Q6H Lactated Ringers [Ringers, Lactated] 1,000 ml IV ASDIRECTED 06/21/18 Dinner Regular Diet [DIET] 06/22/18 09:00 Docusate Sodium [Colace] 100 mg PO BID 06/23/18 03:45 Ibuprofen [Motrin] 800 mg PO Q8H PRN - Plan Plan:: Patient seen and examined--agree with above.
[2018-06-22] MEDS: Docusate Sodium 100 MG Cap PO SCH ×2 (09:53→21:44)
--- NOTE | 2018-06-22 14:35 | PCM48HPAN ---
Post Anesthesia Note - EVALUATION WITHIN 48HRS OF ANESTHETIC Vital Signs in Normal Range: Yes Patient Participated in Evaluation: Yes Respiratory Function Stable: Yes Airway Patent: Yes Cardiovascular Function Stable: Yes Hydration Status Stable: Yes Pain Control Satisfactory: Yes Nausea and Vomiting Control Satisfactory: Yes Mental Status Recovered: Yes Resp Rate: 18 Temperature: 100.7 C - COMMENTS/OBSERVATIONS Free Text/Narrative:: Up walking in room and states she is doing great
[2018-06-23] MEDS: Acetaminophen/oxyCODONE 325-5 MG Tab PO PRN ×5 (00:11→21:06)
--- NOTE | 2018-06-23 08:49 | PCM.PN ---
- General Info Date of Service: 06/23/18 Functional Status: Reports: Pain Controlled, Tolerating Diet, Ambulating, Urinating - Review of Systems General: Denies: Fever, Weakness Pulmonary: Denies: Shortness of Breath Cardiovascular: Denies: Chest Pain, Palpitations, Lightheadedness Gastrointestinal: Reports: Abdominal Pain (incisional, well controlled on oral pain meds), Flatus. Denies: Nausea, Vomiting Genitourinary: Reports: No Symptoms Musculoskeletal: Reports: No Symptoms Skin: Reports: No Symptoms Neurological: Reports: No Symptoms Psychiatric: Reports: No Symptoms - Patient Data Vitals - Most Recent: Last Vital Signs Temp 36.4 C 06/23/18 04:08 Pulse 72 06/23/18 04:08 Resp 16 06/23/18 04:08 BP 128/66 06/23/18 04:08 Pulse Ox 96 06/23/18 04:08 Weight - Most Recent: 142.609 kg Med Orders - Current: Current Medications Bisacodyl (Dulcolax) 10 mg RECTAL ONETIME PRN PRN Reason: Constipation Carboprost Tromethamine (Hemabate Ds) 250 mcg IM ASDIRECTED PRN PRN Reason: Post Hemorrhage Diphenhydramine HCl (Benadryl) 25 mg IVPUSH Q6H PRN PRN Reason: Itching or Nausea Docusate Sodium (Colace) 100 mg PO BID ALINA Last Admin: 06/22/18 21:44 Dose: 100 mg Emollient Ointment (Lansinoh Hpa) 0 gm TOP ASDIRECTED PRN PRN Reason: Sore Nipples Last Admin: 06/22/18 16:07 Dose: 1 tube Lactated Ringer's (Ringers, Lactated) 1,000 mls @ 150 mls/hr IV ASDIRECTED ALINA Last Admin: 06/21/18 07:33 Dose: 150 mls/hr Oxytocin/Sodium Chloride (Oxytocin 30 Unit/500 Ml-Ns) 30 unit in 500 mls @ 999 mls/hr IV TITRATE ALINA Oxytocin/Sodium Chloride (Oxytocin 30 Unit/500 Ml-Ns) 30 unit in 500 mls @ 2 mls/hr IV TITRATE ALINA; Protocol Last Titration: 06/21/18 19:54 Dose: 28 munits/min, 28 mls/hr Tranexamic Acid 1,000 mg/ (Sodium Chloride) 110 mls @ 660 mls/hr IV ONETIME PRN PRN Reason: Bleeding Lactated Ringer's (Ringers, Lactated) 1,000 mls @ 125 mls/hr IV ASDIRECTED ALINA Last Admin: 06/21/18 22:56 Dose: 125 mls/hr Ibuprofen (Motrin) 800 mg PO Q8H PRN PRN Reason: mild pain or fever Methylergonovine Maleate (Methergine) 0.2 mg IM ASDIRECTED PRN PRN Reason: Post Hemorrhage Ondansetron HCl (Zofran) 4 mg IV Q6H PRN PRN Reason: Nausea/Vomiting Last Admin: 06/21/18 03:22 Dose: 4 mg Ondansetron HCl (Zofran) 4 mg IVPUSH Q4H PRN PRN Reason: Nausea/Vomiting Oxycodone/Acetaminophen (Percocet 325-5 Mg) 1 tab PO Q4H PRN PRN Reason: Pain (moderate 4-6) Last Admin: 06/23/18 00:11 Dose: 1 tab Oxycodone/Acetaminophen (Percocet 325-5 Mg) 2 tab PO Q4H PRN PRN Reason: Pain (moderate 4-6) Last Admin: 06/23/18 04:05 Dose: 2 tab Sodium Chloride (Saline Flush) 10 ml FLUSH ASDIRECTED PRN PRN Reason: Keep Vein Open Sodium Chloride (Saline Flush) 2.5 ml FLUSH ASDIRECTED PRN PRN Reason: Keep Vein Open Sodium Chloride (Normal Saline) 10 ml IV ASDIRECTED PRN PRN Reason: IV Use Sterile Water (Sterile Water For Irrigation) 1,000 ml IRR ASDIRECTED PRN PRN Reason: delivery Discontinued Medications Acetaminophen (Tylenol Extra Strength) 1,000 mg PO ONETIME ONE Stop: 06/21/18 17:12 Last Admin: 06/21/18 17:23 Dose: 1,000 mg Bupivacaine HCl (Sensorcaine-Mpf 0.5%) Confirm Administered Dose 20 ml .ROUTE .STK-MED ONE Stop: 06/21/18 20:30 Last Admin: 06/21/18 23:17 Dose: Not Given Butorphanol Tartrate (Stadol) 1 mg IVPUSH Q1H PRN PRN Reason: Pain Last Admin: 06/21/18 06:15 Dose: 1 mg Cefazolin Sodium (Ancef) Confirm Administered Dose 2 gm .ROUTE .STK-MED ONE Stop: 06/21/18 20:45 Cefazolin Sodium (Ancef) Confirm Administered Dose 1 gm .ROUTE .ST-MED ONE Stop: 06/21/18 20:53 Diphenhydramine HCl (Benadryl) 25 mg IVPUSH Q4H PRN PRN Reason: Itching Stop: 06/22/18 21:25 Diphenhydramine HCl (Benadryl) 25 mg IVPUSH Q4H PRN PRN Reason: Itching Stop: 06/22/18 22:05 Fentanyl/Bupivacaine HCl (Gcovmgyt-Ekxtr-Kl 2 Mcg/Ml-0.125%) Confirm Administered Dose 100 mls @ as directed .ROUTE .[facility]-MED ONE Stop: 06/21/18 06:47 Last Admin: 06/21/18 23:16 Dose: Not Given Fentanyl/Bupivacaine HCl (Mxigbjjy-Eqmhl-Zs 2 Mcg/Ml-0.125%) Confirm Administered Dose 100 mls @ as directed .ROUTE .ST-MED ONE Stop: 06/21/18 12:05 Last Admin: 06/21/18 23:17 Dose: Not Given Fentanyl/Bupivacaine HCl (Duousasv-Umbkx-Rd 2 Mcg/Ml-0.125%) Confirm Administered Dose 100 mls @ as directed .ROUTE .[facility]-MED ONE Stop: 06/21/18 18:12 Last Admin: 06/21/18 23:17 Dose: Not Given Cefazolin Sodium/Dextrose 3 gm (/ Premix) 75 mls @ 100 mls/hr IV ONETIME ONE Stop: 06/21/18 20:54 Last Admin: 06/21/18 23:17 Dose: Not Given Sodium Chloride (Normal Saline) Confirm Administered Dose 20 mls @ as directed .ROUTE .ST-MED ONE Stop: 06/21/18 20:45 Sodium Chloride (Normal Saline) Confirm Administered Dose 20 mls @ as directed .ROUTE .[facility]-MED ONE Stop: 06/21/18 20:53 Ketorolac Tromethamine (Toradol) 30 mg IVPUSH Q6H ALINA Stop: 06/22/18 21:46 Last Admin: 06/22/18 21:43 Dose: 30 mg Lidocaine HCl (Xylocaine 1%) 50 ml INJECT ONETIME PRN PRN Reason: Laceration repair Lidocaine/Epinephrine (Lidocaine 1.5%-Epi 1:200,000) Confirm Administered Dose 5 ml IJ .STK-MED ONE Stop: 06/21/18 06:47 Last Admin: 06/21/18 23:17 Dose: Not Given Misoprostol (Cytotec) 200 mcg PO ONETIME PRN PRN Reason: Post Hemorrhage Misoprostol (Cytotec) 25 mcg VAG Q4H PRN PRN Reason: Cervical Ripening Last Admin: 06/20/18 22:58 Dose: 25 mcg Morphine Sulfate (Duramorph Pf) Confirm Administered Dose 10 mg .ROUTE .STK-MED ONE Stop: 06/21/18 21:09 Nalbuphine HCl (Nubain) 5 mg IVPUSH Q3H PRN PRN Reason: Pruritis Stop: 06/22/18 21:24 Nalbuphine HCl (Nubain) 5 mg IVPUSH Q3H PRN PRN Reason: Pruritis Stop: 06/22/18 22:05 Naloxone HCl (Narcan) 0.1 mg IVPUSH ONETIME PRN PRN Reason: Respiratory Depression Stop: 06/22/18 21:25 Naloxone HCl (Narcan) 0.1 mg IVPUSH ONETIME PRN PRN Reason: Respiratory Depression Stop: 06/22/18 22:05 Octyl Cyanoacrylate (Dermabond Advance) Confirm Administered Dose 1 applic .ROUTE .STK-MED ONE Stop: 06/21/18 21:22 Last Admin: 06/21/18 23:17 Dose: Not Given Ondansetron HCl (Zofran) Confirm Administered Dose 4 mg .ROUTE .STK-MED ONE Stop: 06/21/18 21:02 Oxytocin (Pitocin) Confirm Administered Dose 30 unit .ROUTE .STK-MED ONE Stop: 06/21/18 20:47 Terbutaline Sulfate (Brethine) 0.25 mg SUBCUT ASDIRECTED PRN PRN Reason: Tacysystole - Exam General: Alert, Oriented Lungs: Normal Respiratory Effort Cardiovascular: Regular Rate, Regular Rhythm GI/Abdominal Exam: Normal Bowel Sounds, Soft Back Exam: Normal Inspection Extremities: Pedal Edema (2+). No: Winter's Sign Skin: Warm, Dry, Intact Psy/Mental Status: Alert, Normal Affect - Problem List & Annotations (1) Arrest of descent, delivered, current hospitalization SNOMED Code(s): 15483960 Code(s): O62.1 - SECONDARY UTERINE INERTIA Status: Acute Current Visit: Yes (2) Gestational diabetes SNOMED Code(s): 99902741 Code(s): O24.419 - GESTATIONAL DIABETES MELLITUS IN , UNSP CONTROL Status: Acute Current Visit: Yes Qualifiers: Gestational diabetes mellitus control: diet-controlled Trimester: third trimester Qualified Code(s): O24.410 - Gestational diabetes mellitus in , diet controlled - Problem List Review Problem List Initiated/Reviewed/Updated: Yes - My Orders Last 24 Hours: My Active Orders 06/22/18 09:00 Docusate Sodium [Colace] 100 mg PO BID 06/23/18 03:45 Ibuprofen [Motrin] 800 mg PO Q8H PRN - Assessment Assessment:: POD#2 s/p PLTCS for arrest to descent. - Plan Plan:: Continue with postoperative cares, ambulate halls today. VS are stable. Work with and plan discharge in the morning.
[2018-06-23] MEDS: Docusate Sodium 100 MG Cap PO SCH ×2 (09:28→20:44)
[2018-06-23] MEDS: Ibuprofen 800 MG Tab PO PRN ×2 (12:41→20:43)
[2018-06-24] MEDS: Acetaminophen/oxyCODONE 325-5 MG Tab PO PRN ×5 (01:01→18:19)
[2018-06-24] MEDS: Ibuprofen 800 MG Tab PO PRN ×2 (07:54→16:32)
--- NOTE | 2018-06-24 08:24 | PCM.PNPP ---
- General Info Date of Service: 06/24/18 Functional Status: Reports: Pain Controlled, Tolerating Diet, Ambulating, Urinating - Review of Systems General: Denies: Fever, Weakness Pulmonary: Denies: Shortness of Breath Cardiovascular: Denies: Chest Pain, Palpitations, Lightheadedness Gastrointestinal: Reports: Abdominal Pain (well controlled on oral pain meds). Denies: Nausea, Vomiting Genitourinary: Reports: No Symptoms Skin: Reports: No Symptoms Neurological: Reports: No Symptoms Psychiatric: Reports: No Symptoms - Patient Data Vital Signs - Most Recent: Last Vital Signs Temp 36.4 C 06/24/18 07:00 Pulse 78 06/24/18 07:00 Resp 16 06/24/18 07:00 BP 112/67 06/24/18 07:00 Pulse Ox 97 06/24/18 07:00 Weight - Most Recent: 142.609 kg Med Orders - Current: Current Medications Bisacodyl (Dulcolax) 10 mg RECTAL ONETIME PRN PRN Reason: Constipation Carboprost Tromethamine (Hemabate Ds) 250 mcg IM ASDIRECTED PRN PRN Reason: Post Hemorrhage Diphenhydramine HCl (Benadryl) 25 mg IVPUSH Q6H PRN PRN Reason: Itching or Nausea Docusate Sodium (Colace) 100 mg PO BID [facility] Last Admin: 06/23/18 20:44 Dose: 100 mg Emollient Ointment (Lansinoh Hpa) 0 gm TOP ASDIRECTED PRN PRN Reason: Sore Nipples Last Admin: 06/22/18 16:07 Dose: 1 tube Lactated Ringer's (Ringers, Lactated) 1,000 mls @ 150 mls/hr IV ASDIRECTED ALINA Last Admin: 06/21/18 07:33 Dose: 150 mls/hr Oxytocin/Sodium Chloride (Oxytocin 30 Unit/500 Ml-Ns) 30 unit in 500 mls @ 999 mls/hr IV TITRATE ALINA Oxytocin/Sodium Chloride (Oxytocin 30 Unit/500 Ml-Ns) 30 unit in 500 mls @ 2 mls/hr IV TITRATE ALINA; Protocol Last Titration: 06/21/18 19:54 Dose: 28 munits/min, 28 mls/hr Tranexamic Acid 1,000 mg/ (Sodium Chloride) 110 mls @ 660 mls/hr IV ONETIME PRN PRN Reason: Bleeding Lactated Ringer's (Ringers, Lactated) 1,000 mls @ 125 mls/hr IV ASDIRECTED ALINA Last Admin: 06/21/18 22:56 Dose: 125 mls/hr Ibuprofen (Motrin) 800 mg PO Q8H PRN PRN Reason: mild pain or fever Last Admin: 06/24/18 07:54 Dose: 800 mg Methylergonovine Maleate (Methergine) 0.2 mg IM ASDIRECTED PRN PRN Reason: Post Hemorrhage Ondansetron HCl (Zofran) 4 mg IV Q6H PRN PRN Reason: Nausea/Vomiting Last Admin: 06/21/18 03:22 Dose: 4 mg Ondansetron HCl (Zofran) 4 mg IVPUSH Q4H PRN PRN Reason: Nausea/Vomiting Oxycodone/Acetaminophen (Percocet 325-5 Mg) 1 tab PO Q4H PRN PRN Reason: Pain (moderate 4-6) Last Admin: 06/23/18 00:11 Dose: 1 tab Oxycodone/Acetaminophen (Percocet 325-5 Mg) 2 tab PO Q4H PRN PRN Reason: Pain (moderate 4-6) Last Admin: 06/24/18 05:05 Dose: 2 tab Sodium Chloride (Saline Flush) 10 ml FLUSH ASDIRECTED PRN PRN Reason: Keep Vein Open Sodium Chloride (Saline Flush) 2.5 ml FLUSH ASDIRECTED PRN PRN Reason: Keep Vein Open Sodium Chloride (Normal Saline) 10 ml IV ASDIRECTED PRN PRN Reason: IV Use Sterile Water (Sterile Water For Irrigation) 1,000 ml IRR ASDIRECTED PRN PRN Reason: delivery Discontinued Medications Acetaminophen (Tylenol Extra Strength) 1,000 mg PO ONETIME ONE Stop: 06/21/18 17:12 Last Admin: 06/21/18 17:23 Dose: 1,000 mg Bupivacaine HCl (Sensorcaine-Mpf 0.5%) Confirm Administered Dose 20 ml .ROUTE .STK-MED ONE Stop: 06/21/18 20:30 Last Admin: 06/21/18 23:17 Dose: Not Given Butorphanol Tartrate (Stadol) 1 mg IVPUSH Q1H PRN PRN Reason: Pain Last Admin: 06/21/18 06:15 Dose: 1 mg Cefazolin Sodium (Ancef) Confirm Administered Dose 2 gm .ROUTE .STK-MED ONE Stop: 06/21/18 20:45 Cefazolin Sodium (Ancef) Confirm Administered Dose 1 gm .ROUTE .STK-MED ONE Stop: 06/21/18 20:53 Diphenhydramine HCl (Benadryl) 25 mg IVPUSH Q4H PRN PRN Reason: Itching Stop: 06/22/18 21:25 Diphenhydramine HCl (Benadryl) 25 mg IVPUSH Q4H PRN PRN Reason: Itching Stop: 06/22/18 22:05 Fentanyl/Bupivacaine HCl (Wjigqffi-Gczjr-Eg 2 Mcg/Ml-0.125%) Confirm Administered Dose 100 mls @ as directed .ROUTE .STK-MED ONE Stop: 06/21/18 06:47 Last Admin: 06/21/18 23:16 Dose: Not Given Fentanyl/Bupivacaine HCl (Ugivbzrk-Kcamn-Fp 2 Mcg/Ml-0.125%) Confirm Administered Dose 100 mls @ as directed .ROUTE .STK-MED ONE Stop: 06/21/18 12:05 Last Admin: 06/21/18 23:17 Dose: Not Given Fentanyl/Bupivacaine HCl (Iksbdalg-Hxfpn-Ei 2 Mcg/Ml-0.125%) Confirm Administered Dose 100 mls @ as directed .ROUTE .STK-MED ONE Stop: 06/21/18 18:12 Last Admin: 06/21/18 23:17 Dose: Not Given Cefazolin Sodium/Dextrose 3 gm (/ Premix) 75 mls @ 100 mls/hr IV ONETIME ONE Stop: 06/21/18 20:54 Last Admin: 06/21/18 23:17 Dose: Not Given Sodium Chloride (Normal Saline) Confirm Administered Dose 20 mls @ as directed .ROUTE .STK-MED ONE Stop: 06/21/18 20:45 Sodium Chloride (Normal Saline) Confirm Administered Dose 20 mls @ as directed .ROUTE .STK-MED ONE Stop: 06/21/18 20:53 Ketorolac Tromethamine (Toradol) 30 mg IVPUSH Q6H ALINA Stop: 06/22/18 21:46 Last Admin: 06/22/18 21:43 Dose: 30 mg Lidocaine HCl (Xylocaine 1%) 50 ml INJECT ONETIME PRN PRN Reason: Laceration repair Lidocaine/Epinephrine (Lidocaine 1.5%-Epi 1:200,000) Confirm Administered Dose 5 ml IJ .STK-MED ONE Stop: 06/21/18 06:47 Last Admin: 06/21/18 23:17 Dose: Not Given Misoprostol (Cytotec) 200 mcg PO ONETIME PRN PRN Reason: Post Hemorrhage Misoprostol (Cytotec) 25 mcg VAG Q4H PRN PRN Reason: Cervical Ripening Last Admin: 06/20/18 22:58 Dose: 25 mcg Morphine Sulfate (Duramorph Pf) Confirm Administered Dose 10 mg .ROUTE .STK-MED ONE Stop: 06/21/18 21:09 Nalbuphine HCl (Nubain) 5 mg IVPUSH Q3H PRN PRN Reason: Pruritis Stop: 06/22/18 21:24 Nalbuphine HCl (Nubain) 5 mg IVPUSH Q3H PRN PRN Reason: Pruritis Stop: 06/22/18 22:05 Naloxone HCl (Narcan) 0.1 mg IVPUSH ONETIME PRN PRN Reason: Respiratory Depression Stop: 06/22/18 21:25 Naloxone HCl (Narcan) 0.1 mg IVPUSH ONETIME PRN PRN Reason: Respiratory Depression Stop: 06/22/18 22:05 Octyl Cyanoacrylate (Dermabond Advance) Confirm Administered Dose 1 applic .ROUTE .STK-MED ONE Stop: 06/21/18 21:22 Last Admin: 06/21/18 23:17 Dose: Not Given Ondansetron HCl (Zofran) Confirm Administered Dose 4 mg .ROUTE .STK-MED ONE Stop: 06/21/18 21:02 Oxytocin (Pitocin) Confirm Administered Dose 30 unit .ROUTE .STK-MED ONE Stop: 06/21/18 20:47 Terbutaline Sulfate (Brethine) 0.25 mg SUBCUT ASDIRECTED PRN PRN Reason: Tacysystole - Infant Interaction Infant Disposition, : in Room with Family Interaction: Holding Infant Feeding: Breastfed Infant; Nursed Well - Recovery Exam Fundal Tone: Firm Fundal Level: 1 Fingerbreadths Below Umbilicus Fundal Placement: Midline Lochia Amount: Scant Lochia Color: Rubra/Red Perineum Description: Intact, Minimal Bruising/Swelling Episiotomy/Laceration: None Bladder Status: Voiding Urinary Elimination: Voided - Exam General: Alert, Oriented Lungs: Normal Respiratory Effort Cardiovascular: Regular Rate, Regular Rhythm GI/Abdominal Exam: Normal Bowel Sounds, Soft Extremities: Pedal Edema (1+). No: Winter's Sign Skin: Warm, Dry, Intact Wound/Incisions: Healing Well, No Drainage. No: Erythema Neurological: No New Focal Deficit Psy/Mental Status: Alert, Normal Affect, Normal Mood - Problem List & Annotations (1) Arrest of descent, delivered, current hospitalization SNOMED Code(s): 36306447 Code(s): O62.1 - SECONDARY UTERINE INERTIA Status: Acute Current Visit: Yes (2) Gestational diabetes SNOMED Code(s): 33671700 Code(s): O24.419 - GESTATIONAL DIABETES MELLITUS IN , UNSP CONTROL Status: Acute Current Visit: Yes Qualifiers: Gestational diabetes mellitus control: diet-controlled Trimester: third trimester Qualified Code(s): O24.410 - Gestational diabetes mellitus in , diet controlled - Problem List Review Problem List Initiated/Reviewed/Updated: Yes - My Orders Last 24 Hours: My Active Orders 06/24/18 08:21 Ready for Discharge [RC] PER UNIT ROUTINE - Assessment Assessment:: POD#3 s/p PLTCS for arrest to descent. - Plan Plan:: Patient doing well overall and feels ready to go home today. Discharge instructions reviewed. Follow up at [facility] 2 and 6 weeks. Needs 75 gm GTT at PP visit. Has remote history of depression and after discussion, has opted to start SSRI for PP depression prophylaxis. Infection and bleeding warnings reviewed. Discharge to home.
[2018-06-24] MEDS: Docusate Sodium 100 MG Cap PO SCH (09:25)
== END 2018-06-24 20:10 | disposition home or self-care (01) | DRG 788 ==
LOC: MW.OB 17:44 → OBSVTOIN 06-21 21:46 → MW.OB 06-21 22:00
PROVIDERS: ADMIT Obstetrics & Gynecology; ATTEND Obstetrics & Gynecology
PROC: 3E0P7VZ Introduction of Hormone into Female Reproductive, Via Natural or Artificial Opening (ICD-10-PCS; principal; 2018-06-21)
PROC: 6A550ZT Pheresis of Cord Blood Stem Cells, Single (ICD-10-PCS; principal; 2018-06-21)
PROC: 10D00Z1 Extraction of Products of Conception, Low, Open Approach (ICD-10-PCS; principal; 2018-06-21)
PROC: 00HU33Z Insertion of Infusion Device into Spinal Canal, Percutaneous Approach (ICD-10-PCS; 2018-06-21)
PROC: 3E0R3BZ Introduction of Anesthetic Agent into Spinal Canal, Percutaneous Approach (ICD-10-PCS; 2018-06-21)
DX: O24.420 Gestational diabetes mellitus in childbirth, diet controlled (principal); O62.1 Secondary uterine inertia; Z3A.39 39 weeks gestation of pregnancy; Z37.0 Single live birth; O64.0XX0 Obstructed labor due to incomplete rotation of fetal head, not applicable or unspecified; O36.63X0 Maternal care for excessive fetal growth, third trimester, not applicable or unspecified; O99.214 Obesity complicating childbirth; E66.9 Obesity, unspecified; O99.02 Anemia complicating childbirth; D64.9 Anemia, unspecified; O99.62 Diseases of the digestive system complicating childbirth; K21.9 Gastro-esophageal reflux disease without esophagitis; Z90.49 Acquired absence of other specified parts of digestive tract; Z88.1 Allergy status to other antibiotic agents; Z88.0 Allergy status to penicillin
CPT/HCPCS: 36415; 51702; 59025; 82803; 82947; 82962; 85014; 85018; 85027; 86850; 86900; 86901; A9270-GY; J0595; J0690; J1885; J2270; J2405; J2590; J7120